=== PATIENT | female | born 1935 | race Caucasian/White ===

== ENCOUNTER → 2021-06-10 | Day surgery (SDC) | payer OTHER, BC ==
[2021-06-05 17:56] VITALS: BMI 19.1
[~2021-06-10] MED LIST: BSS (NA/CA/MG/K) BALANCED SALT SOLUTION OPHTH SOLN 15 ML BOTTLE ONE; CARBACHOL 0.01% INTRA-OCULAR 1.5 ML VIAL ONE; LIDOCAINE 1% P/F 10 MG/ML VIAL ONE; NEO/POLYMYX B SULF/DEXAMETH OPHTHALMIC 5ML BOTTLE ONE; TETRACAINE 0.5% OPHTH SOLN 2 ML BOTTLE ONE
[2021-06-10] MEDS: CIPROFLOXACIN 0.3% EYE DROPS 5 ML BOTTLE ONE ×3 (07:15→07:25)
[2021-06-10] MEDS: PHENYLEPHRINE 2.5% OPHTH SOLN 15 ML BOTTLE ONE ×3 (07:15→07:25)
[2021-06-10] MEDS: CYCLOPENTOLATE 2% OPHTH SOLN 2 ML BOTTLE ONE ×3 (07:15→07:25)
[2021-06-10] MEDS: TROPICAMIDE 1% OPHTH SOLN 15 ML BOTTLE ONE ×3 (07:15→07:25)
[2021-06-10 07:28] VITALS: BP 152/81; PULSE 82; TEMP 96.7
== END | disposition home or self-care (01) ==
LOC: FASU 06:54
PROVIDERS: ATTEND Ophthalmology
PROC: 08RK3JZ Replacement of Left Lens with Synthetic Substitute, Percutaneous Approach (ICD-10-PCS; principal; 2021-06-10 08:30)
DX: Z53.09 Procedure and treatment not carried out because of other contraindication (principal); H26.8 Other specified cataract

== ENCOUNTER 2022-03-10 08:31 | Day surgery (SDC) | payer OTHER, BC ==
[2022-03-02 10:58] VITALS: BMI 19.1
[~2022-03-10 08:31] MED LIST changes: -BSS (NA/CA/MG/K) BALANCED SALT SOLUTION OPHTH SOLN 15 ML BOTTLE ONE; -CARBACHOL 0.01% INTRA-OCULAR 1.5 ML VIAL ONE; +CYCLOPENTOLATE 2% OPHTH SOLN 2 ML BOTTLE OS SCH; -LIDOCAINE 1% P/F 10 MG/ML VIAL ONE; -NEO/POLYMYX B SULF/DEXAMETH OPHTHALMIC 5ML BOTTLE ONE; +OFLOXACIN 0.3% OPHTHALMIC SOLUTION 5 ML BOTTLE OS SCH; +PHENYLEPHRINE 2.5% OPHTH SOLN 15 ML BOTTLE OS SCH; -TETRACAINE 0.5% OPHTH SOLN 2 ML BOTTLE ONE; +TROPICAMIDE 1% OPHTH SOLN 15 ML BOTTLE OS SCH
[2022-03-10] MEDS: CYCLOPENTOLATE 2% OPHTH SOLN 2 ML BOTTLE ONE ×3 (08:50→09:00)
[2022-03-10] MEDS: PHENYLEPHRINE 2.5% OPHTH SOLN 15 ML BOTTLE ONE ×3 (08:50→09:00)
[2022-03-10] MEDS: OFLOXACIN 0.3% OPHTHALMIC SOLUTION 5 ML BOTTLE ONE ×3 (08:50→09:00)
[2022-03-10] MEDS: TROPICAMIDE 1% OPHTH SOLN 15 ML BOTTLE ONE ×3 (08:50→09:00)
[2022-03-10] MEDS ORDERED: LIDOCAINE 1% P/F 10 MG/ML VIAL ONE (09:21)
[2022-03-10] MEDS ORDERED: CARBACHOL 0.01% INTRA-OCULAR 1.5 ML VIAL ONE (09:21)
[2022-03-10] MEDS ORDERED: TETRACAINE 0.5% OPHTH SOLN 2 ML BOTTLE ONE (09:21)
[2022-03-10] MEDS ORDERED: NEO/POLYMYX B SULF/DEXAMETH OPHTHALMIC 5ML BOTTLE ONE (09:21)
[2022-03-10] MEDS ORDERED: BSS (NA/CA/MG/K) BALANCED SALT SOLUTION OPHTH SOLN 15 ML BOTTLE ONE (09:21)
[2022-03-10] MEDS ORDERED: MIDAZOLAM HCL 2 MG/2 ML SINGLE DOSE VIAL ONE (09:30)
[2022-03-10 10:19] VITALS: TEMP 98.8
[2022-03-10 10:56] VITALS: BP 127/74; PULSE 77; RESP 14
== END 2022-03-10 10:40 | disposition home or self-care (01) ==
LOC: FASU 08:31
PROVIDERS: ATTEND Ophthalmology
PROC: 08RK3JZ Replacement of Left Lens with Synthetic Substitute, Percutaneous Approach (ICD-10-PCS; principal; 2022-03-10 09:40)
DX: H26.8 Other specified cataract (principal)
CPT/HCPCS: 66984; V2632